=== PATIENT | female | born 2000 | race Hispanic/Latino ===

== ENCOUNTER 2019-11-05 12:48 | Emergency (ER) | payer BC, OTHER ==
[2019-11-06 12:17] LABS: SARS-CoV-2 MS2 Positive; SARS-CoV-2 N Gene Negative; SARS-CoV-2 S Gene Negative; SARS-CoV-2 orf1ab Negative
== END 2019-11-05 13:15 | disposition home or self-care (01) ==
LOC: ERS 12:48
DX: Z20.828 Contact with and (suspected) exposure to other viral communicable diseases (principal); I10 Essential (primary) hypertension
CPT/HCPCS: 87635; 99283; U0003

== ENCOUNTER 2023-04-04 00:30 | Emergency (ER) | payer BC ==
[2023-04-04] MEDS ORDERED: Cyclobenzaprine 10 MG TAB ONE ×2 (02:44→02:46)
== END 2023-04-04 02:55 | disposition home or self-care (01) ==
LOC: ERS 00:30
DX: G44.209 Tension-type headache, unspecified, not intractable (principal); I10 Essential (primary) hypertension
CPT/HCPCS: 99283